=== PATIENT | female | born 1975 | race American Indian/Alaskan Native ===

== ENCOUNTER 2017-02-09 19:14 | Emergency (ER) | payer BC, MEDICAID ==
[2017-02-09 19:14] VITALS: BMI 27.8
[2017-02-09 19:57] VITALS: BP 123/83; PULSE 84; RESP 20; TEMP 98.6; O2SAT 98
--- NOTE | 2017-02-09 21:19 | C.PDOC ---
History Of Present Illness 41 yr old female with PMHx of diabetes and HTN, presents to the ER with complaints of left ear pain for the past 2-3 days. Patient reports slight decrease in hearing and states feels like "in a tunnel". Patient states has tried taking 400mg ibuprofen with no improvement. Patient denies fever, chills, ear discharge, nausea, vomiting, neck pain, headache, weakness or numbness. Time Seen by Provider: 02/09/17 21:02 Chief Complaint (Nursing): ENT Problem History Per: Patient History/Exam Limitations: None Onset/Duration Of Symptoms: Days (2-3 ) Past Medical History Reviewed: Historical Data, Nursing Documentation, Vital Signs Vital Signs: Last Vital Signs Temp 98.6 F 02/09/17 19:54 Pulse 84 02/09/17 19:54 Resp 20 02/09/17 21:24 BP 123/83 02/09/17 19:54 Pulse Ox 98 02/10/17 00:01 - Medical History PMH: Asthma, Depression, Diabetes, HTN, Hypercholesterolemia - [facility] Procedures ESOPHAGOGASTRODUODENOSCOPY [EGD] W/CLOSED BIOPSY (09/19/03) INJECT/INFUSE NEC (03/18/13) Family History: States: No Known Family Hx - Social History Hx Tobacco Use: No Hx Alcohol Use: No Hx Substance Use: No Review Of Systems Except As Marked, All Systems Reviewed And Found Negative. Constitutional: Negative for: Fever, Chills ENT: Positive for: Ear Pain (Left ). Negative for: Ear Discharge Gastrointestinal: Negative for: Nausea, Vomiting Musculoskeletal: Negative for: Neck Pain Neurological: Negative for: Weakness, Numbness, Headache Physical Exam - Physical Exam Appears: Well, Non-toxic, No Acute Distress Skin: Warm, Dry, No Rash Head: Atraumatic, Normacephalic Ear(s): Left: Other (Slight tenderness distal to the earlobe. No mastoid tenderness. ), Bilateral: Normal Oral Mucosa: Moist Throat: Normal, No Erythema, No Exudate, No Drooling Neck: Normal, Normal ROM, Supple Lymphatic: No Adenopathy Chest: Symmetrical, No Tenderness Cardiovascular: Rhythm Regular, No Murmur Respiratory: Normal Breath Sounds, No Rales, No Rhonchi, No Stridor, No Wheezing Extremity: Normal ROM, No Swelling Neurological/Psych: Oriented x3, Normal Speech, Normal Motor ED Course And Treatment O2 Sat by Pulse Oximetry: 98 Medical Decision Making Medical Decision Making: no sign of infectin noted, no mastoid tenderness, no fever. pt adivsed to treat supportively for now and f/u pmd and ent. Disposition Counseled Patient/Family Regarding: Diagnosis, Need For Followup - Disposition Referrals: Roberto Oneill MD [Staff Provider] - Disposition: HOME/ ROUTINE Disposition Time: 21:17 Condition: GOOD Additional Instructions: Continue taking Zyrtec -D. FOllow up with your PMD and Dr Oneill (ENT). Take Ibupfoen 600 mg by mouth every 6 hours for pain. Return to ER for any worsening symptoms. 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 - Scribe Statement The provider has reviewed the documentation as recorded by the Scribe Niharika Mckeon All medical record entries made by the Scribe were at my direction and personally dictated by me. I have reviewed the chart and agree that the record accurately reflects my personal performance of the history, physical exam, medical decision making, and the department course for this patient. I have also personally directed, reviewed, and agree with the discharge instructions and disposition.
== END 2017-02-09 21:24 | disposition home or self-care (01) ==
LOC: C.ER 19:14
DX: H92.02 Otalgia, left ear (principal)